=== PATIENT | female | born 1960 | race Caucasian/White ===

== ENCOUNTER 2019-02-27 07:16 | Day surgery (SDC) | payer MEDICAID, OTHER ==
[~2019-02-27 07:16] MED LIST: Lactated Ringers 1,000 ML IV SCH
[2019-02-27] MEDS ORDERED: Propofol 200 MG/20 ML SDV IV ONE (07:17)
[2019-02-27] MEDS ORDERED: Lidocaine 1% PF 2 ML SDV IV ONE (07:17)
--- NOTE | 2019-02-27 09:15 | PCM.OPNOTE ---
- General Post-Op/Procedure Note Date of Surgery/Procedure: 02/27/19 Operative Procedure(s): c scope with bx Findings: diverticulosis ascending colon polyp Pre Op Diagnosis: + Cologuard test Post-Op Diagnosis: diverticulosis. ascending colon polyp Anesthesia Technique: MAC Primary Surgeon: Toni Phillip Anesthesia Provider: Sergio Holcomb Pathology: asc. colon polyp Complications: None Condition: Good Free Text/Narrative:: see dictation
--- NOTE | 2019-02-27 14:41 | OR ---
DATE OF OPERATION: 02/27/2019 SURGEON: Toni Phillip MD PROCEDURE PERFORMED: Colonoscopy with cold forceps biopsy. PREOPERATIVE DIAGNOSIS: Positive Cologuard. POSTOPERATIVE DIAGNOSIS: Diverticulosis of the colon and ascending colon polyp. INDICATIONS FOR PROCEDURE: This is a 58-year-old white female with the above- mentioned history. She was offered a colonoscopy. DESCRIPTION OF OPERATION: After an excellent IV sedation was administered, digital rectal exam was performed. No marked abnormality was noted. Flexible colonoscope was inserted and advanced to the cecum. Prep was excellent. The following findings were noted. Ascending colon, proximal ascending colon, a small polyp biopsied with cold biopsy forceps and sent for permanent. Transverse colon was unremarkable. Descending colon, occasional diverticulitis. Sigmoid, mild diverticulosis. Rectum and anus, unremarkable. Colon was deflated. Scope was removed. The patient tolerated the procedure well. Results by letter. /[id number] /MODL
== END 2019-02-27 10:15 | disposition home or self-care (01) ==
LOC: FB.SDS 07:16
PROVIDERS: ATTEND Surgery
DX: D12.2 Benign neoplasm of ascending colon (principal); K57.30 Diverticulosis of large intestine without perforation or abscess without bleeding; K57.32 Diverticulitis of large intestine without perforation or abscess without bleeding; E11.9 Type 2 diabetes mellitus without complications; E78.00 Pure hypercholesterolemia, unspecified; E03.9 Hypothyroidism, unspecified; F17.210 Nicotine dependence, cigarettes, uncomplicated; F41.9 Anxiety disorder, unspecified; J45.909 Unspecified asthma, uncomplicated; G47.33 Obstructive sleep apnea (adult) (pediatric); E66.01 Morbid (severe) obesity due to excess calories; Z68.43 Body mass index [BMI] 50.0-59.9, adult; Z91.018 Allergy to other foods; Z91.040 Latex allergy status; Z99.89 Dependence on other enabling machines and devices; Z79.51 Long term (current) use of inhaled steroids; Z79.82 Long term (current) use of aspirin; Z79.84 Long term (current) use of oral hypoglycemic drugs; Z79.899 Other long term (current) drug therapy
CPT/HCPCS: 45380; 81025; 82962; 88305; J2001; J2704; J7120